=== PATIENT | female | born 1995 | race Two or more races ===

== ENCOUNTER 2016-12-28 18:46 | Emergency (ER) | payer SELFPAY ==
[~2016-12-28] VITALS: Ht 152.4 cm; Wt 59.0 kg
[2016-12-28 19:47] LABS: APPEARANCE,URINE CLEAR; KETONES,URINE NEGATIVE (NEGATIVE); LEUKOCYTE ESTERASE ,URINE 1+ (NEGATIVE); NITRITE,URINE NEGATIVE (NEGATIVE); PH,URINE 7 (4.5-8.0); PROTEIN,URINE NEGATIVE (NEGATIVE); UROBILINOGEN,URINE 1 MG/DL (0.0-1.0)
[2016-12-28 19:54] LABS: BACTERIA,URINE FEW /HPF; RBC,URINE 0-2 /HPF (0 - 2); SQUAMOUS EPITHELIAL CELL,UR FEW /LPF (NONE/OCC); WBC,URINE 0-2 /HPF (0 - 2)
[2016-12-28] MEDS ORDERED: PLAN B ONE-STE1.5 MG PO (20:15)
[2016-12-28 20:38] VITALS: BP 116/69
--- NOTE | 2016-12-28 21:40 | Emergency Room Report ---
History of Present Illness General Chief Complaint: Medication Refill Source: Patient Present Illness HPI The patient is a 21-year-old female presenting for possible . She states that she had unprotected sex yesterday and is not taking any control. She denies any symptoms including N, V, F, chills, abd pain, vaginal bleeding, vaginal DC, dysuria Allergies: Coded Allergies: AMOXICILLIN (Verified Allergy, Unknown, 12/28/16) Patient History Past Medical History: see triage record Pertinent Family History: none Last Menstrual Period: 12/20/16 Reviewed Nursing Documentation: PMH: Agreed, PSxH: Agreed Nursing Documentation-PM Past Medical History: No History, Except For Review of Systems All Other Systems: negative except mentioned in HPI Physical Exam Vital Signs Date Time Temp Pulse Resp B/P (MAP) Pulse Ox O2 Delivery O2 Flow Rate FiO2 12/28/16 18:49 98.1 73 14 116/69 100 Room Air Sp02 EP Interpretation: reviewed, normal General Appearance: no apparent distress, alert, GCS 15, non-toxic Head: normocephalic, atraumatic Eyes: bilateral eye normal inspection, bilateral eye PERRL ENT: hearing grossly normal, normal pharynx, no angioedema, normal voice Gastrointestinal: normal bowel sounds, non tender, soft, non-distended, no guarding, no rebound Musculoskeletal: back normal, gait/station normal, normal range of motion, non- tender Neurologic: alert, oriented x3, responsive, motor strength/tone normal, sensory intact, speech normal Psychiatric: judgement/insight normal, memory normal, mood/affect normal, no suicidal/homicidal ideation Skin: normal color, no rash, warm/dry, well hydrated Medical Decision Making PA Attestation Dr. Stephenson is my supervising physician. Patient management was discussed with my supervising physician Diagnostic Impression: Primary Impression: Possible , not confirmed ER Course The patient is a 21-year-old female presenting for possible Differential diagnoses considered include but not limited to Early , threatened , incomplete , complete , ectopic , hemorrhagic cyst PE: NAD Abd is soft and non tender UA unremarkable. Neg preg She is given prescription for plan B ER precautions given Laboratory Tests Test 12/28/16 19:31 Urine Color Pale yellow Urine Appearance Clear Urine pH 7 (4.5-8.0) Urine Specific [place] 1.010 (1.005-1.035) Urine Protein Negative (NEGATIVE) Urine Glucose (UA) Negative (NEGATIVE) Urine Ketones Negative (NEGATIVE) Urine Occult Blood Negative (NEGATIVE) Urine Nitrite Negative (NEGATIVE) Urine Bilirubin Negative (NEGATIVE) Urine Urobilinogen 1 MG/DL (0.0-1.0) H Urine Leukocyte Esterase 1+ (NEGATIVE) H Urine RBC 0-2 /HPF (0 - 2) Urine WBC 0-2 /HPF (0 - 2) Urine Squamous Epithelial Cells Few /LPF (NONE/OCC) Urine Bacteria Few /HPF (NONE) Urine HCG, Qualitative Negative Lab Results Impression Unremarkable. Neg preg Last Vital Signs Date Time Temp Pulse Resp B/P (MAP) Pulse Ox O2 Delivery O2 Flow Rate FiO2 12/28/16 20:38 98.1 14 116/69 100 Room Air 12/28/16 18:49 73 Status: improved Disposition: HOME, SELF-CARE Condition: Improved Scripts Levonorgestrel (PLAN B ONE-STEP) 1.5 Mg Tablet 1.5 MG PO ONCE, #1 TAB Prov: TEE BLAND 12/28/16 Patient Instructions: Safe Sex Additional Instructions: I discussed my findings with the patient. All questions and concerns have been answered. Treatment and medication compliance have been addressed. I advised the patient that they need to follow up with PMD in 3-5 days. Return to ED if symptoms worsen, new symptoms arise, or if needed for any reason. Patient verbalized understanding of discharge instructions. TEE BLAND Dec 28, 2016 21:40
== END 2016-12-28 20:38 | disposition home or self-care (01) ==
LOC: EMR 19:08
DX: Z32.00 Encounter for pregnancy test, result unknown (principal); Z88.0 Allergy status to penicillin
CPT/HCPCS: 81003; 81025; 99283

== ENCOUNTER 2018-02-03 23:36 | Emergency (ER) | payer BC ==
[~2018-02-03] VITALS: Ht 152.4 cm; Wt 61.7 kg
[~2018-02-03 23:36] MED LIST: BENADRYL ALLERG25 M1 PO; IBUPROFEN600 MG ORAL; NKM; PLAN B ONE-STE1.5 MG PO
[2018-02-04 00:06] VITALS: BP 131/80
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
[2018-02-04 00:30] VITALS: BP 131/80
== END 2018-02-04 00:30 | disposition home or self-care (01) ==
LOC: EMR 23:50
DX: R07.9 Chest pain, unspecified (principal); Z88.0 Allergy status to penicillin
CPT/HCPCS: 93005; 99282

== ENCOUNTER 2018-05-19 15:52 | Emergency (ER) | payer OTHER ==
[~2018-05-19] VITALS: Ht 154.9 cm; Wt 59.0 kg
--- NOTE | 2018-05-19 16:20 | NUR ---
ED Nurse Note: patient walked into Ed from home c/o epigastric pain, sharp, radiates to her back patient reports eating greasy taco yesterday and it started since then. patient denies any fever /vomiting.
[2018-05-19] MEDS ORDERED: Dicyclomine HCl 10mg/5ml oral soln ORAL ONE (16:30)
[2018-05-19] MEDS ORDERED: Lidocaine 2% Visc 15ml soln ORAL ONE (16:30)
[2018-05-19] MEDS ORDERED: Mylanta II UD 30ml ORAL ONE (16:30)
[2018-05-19 16:47] VITALS: BP 119/79
[2018-05-19 16:47] LABS: EOSINOPHILS % (AUTO) 0.8 % (0.0-3.0); HEMATOCRIT 41.8 % (37.0-47.0); HEMOGLOBIN 14.2 G/DL (12.0-16.0); LYMPHOCYTES % (AUTO) 22.7 % (20.0-45.0); MEAN CORPUSCULAR VOLUME 90 FL (80-99); MONOCYTES % (AUTO) 5.9 % (1.0-10.0); NEUTROPHILS % (AUTO) 69.7 % (45.0-75.0); PLATELET COUNT 225 K/UL (150-450); RED BLOOD COUNT 4.64 M/UL (4.20-5.40); RED CELL DISTRIBUTION WIDTH 11.7 % (11.6-14.8); WHITE BLOOD COUNT 12.1 K/UL (4.8-10.8)
[2018-05-19 16:53] LABS: APPEARANCE,URINE CLEAR; BILIRUBIN, URINE NEGATIVE (NEGATIVE); GLUCOSE, URINE (UA) NEGATIVE (NEGATIVE); KETONES,URINE NEGATIVE (NEGATIVE); LEUKOCYTE ESTERASE ,URINE 1+ (NEGATIVE); NITRITE,URINE NEGATIVE (NEGATIVE); PH,URINE 7 (4.5-8.0); PROTEIN,URINE NEGATIVE (NEGATIVE); UROBILINOGEN,URINE NORMAL MG/DL (0.0-1.0)
[2018-05-19 16:54] LABS: COLOR,URINE YELLOW
[2018-05-19 16:58] LABS: ANION GAP 9 mmol/L (5-15); BLOOD UREA NITROGEN 12 mg/dL (7-18); CALCIUM 9.1 MG/DL (8.5-10.1); CARBON DIOXIDE 28 MMOL/L (21-32); CHLORIDE 103 MMOL/L (98-107); CREATININE 0.7 MG/DL (0.55-1.30); POTASSIUM 3.3 MMOL/L (3.5-5.1); SODIUM 139 MMOL/L (136-145)
[2018-05-19 17:02] LABS: ALANINE AMINOTRANSFERASE 24 U/L (12-78); ALBUMIN 4.2 G/DL (3.4-5.0); ALBUMIN/GLOBULIN RATIO 1.2 (1.0-2.7); ALKALINE PHOSPHATASE 84 U/L (46-116); ASPARTATE AMINO TRANSFERASE 14 U/L (15-37); BILIRUBIN,TOTAL 0.4 MG/DL (0.2-1.0)
--- NOTE | 2018-05-19 17:04 | NUR ---
ED Nurse Note: Shea BROWER notified [facility] neg.
--- NOTE | 2018-05-19 17:32 | Emergency Room Report ---
History of Present Illness General Chief Complaint: Abdominal Pain Source: Patient Present Illness HPI 22-year-old female presents to the emergency department complaining of 10 out of 10 in severity burning epigastric and right upper quadrant pain that is intermittent times one week. Patient reports nausea she denies vomiting she does report 3 episodes of loose stools this morning. Patient denies blood in the stool or black tarry stool. Patient does report that she also has a history of gallstones. Patient denies fevers, chills, recent travel or ill contacts with similar symptoms. Patient denies suspicion of , dysuria , hematuria or urinary frequency. Patient states that her abdominal pain radiates across towards the right of her stomach and backwards. Patient states that her symptoms are exacerbated with eating greasy foods and she denies any relieving factors. Allergies: Coded Allergies: AMOXICILLIN (Verified Allergy, Unknown, 12/28/16) Patient History Past Medical History: see triage record Past Surgical History: none Pertinent Family History: none Last Menstrual Period: 04/18/2018 Now: No Reviewed Nursing Documentation: PMH: Agreed; PSxH: Agreed Nursing Documentation-PMH Past Medical History: No Stated History Review of Systems All Other Systems: negative except mentioned in HPI Physical Exam Vital Signs Date Time Temp Pulse Resp B/P (MAP) Pulse Ox O2 Delivery O2 Flow Rate FiO2 05/19/18 16:10 98.2 97 16 119/79 99 Room Air Medical Decision Making PA Attestation Dr. Reyes is my supervising Physician whom patient management has been discussed with. Diagnostic Impression: Primary Impression: Abdominal pain Qualified Codes: R10.13 - Epigastric pain Additional Impressions: Diarrhea Qualified Codes: R19.7 - Diarrhea, unspecified Hx of gallstones ER Course 22-year-old female presents to the emergency department complaining of 10 out of 10 in severity burning epigastric and right upper quadrant pain that is intermittent times one week. Patient reports nausea she denies vomiting she does report 3 episodes of loose stools this morning. Patient denies blood in the stool or black tarry stool. Patient does report that she also has a history of gallstones. Patient denies fevers, chills, recent travel or ill contacts with similar symptoms. Patient denies suspicion of , dysuria , hematuria or urinary frequency. Patient states that her abdominal pain radiates across towards the right of her stomach and backwards. Patient states that her symptoms are exacerbated with eating greasy foods and she denies any relieving factors. Ddx considered but are not limited to Diverticulitis, acute appy, diarrhea,UC, PUD, GE, pancreatitis, gallstone, ovarian torsion, ectopic , PID tubo-ovarian abscess. Vital signs: are WNL, pt. is afebrile H&PE are most consistent with gastritis vs, viral GE, vs. gallstones ORDERS: -CBC, CMP, LIPASE: All WNL- WBC at 12.1 most likely stress reaction due to diarrhea. -UA: Negative -URINE HCG:Negative ED INTERVENTIONS: -PO zofran 4mg. / Zantac, Fluids -Bentyl PO -I do not identify an emergent condition at this time. With current presentation , pt. is stable for close outpatient follow up and conservative treatment. D/ w pt. to return promptly to ED with worsening or new symptoms.- Pt. verbalizes' understanding and agreement with proposed treatment plan. DISCHARGE: At this time pt. is stable for d/c to home. Will provide printed patient care instructions, and any necessary prescriptions. Care plan and follow up instructions have been discussed with the patient prior to discharge. Labs Test 05/19/18 16:30 White Blood Count 12.1 K/UL (4.8-10.8) Red Blood Count 4.64 M/UL (4.20-5.40) Hemoglobin 14.2 G/DL (12.0-16.0) Hematocrit 41.8 % (37.0-47.0) Mean Corpuscular Volume 90 FL (80-99) Mean Corpuscular Hemoglobin 30.6 PG (27.0-31.0) Mean Corpuscular Hemoglobin Concent 33.9 G/DL (32.0-36.0) Red Cell Distribution Width 11.7 % (11.6-14.8) Platelet Count 225 K/UL (150-450) Mean Platelet Volume 9.7 FL (6.5-10.1) Neutrophils (%) (Auto) 69.7 % (45.0-75.0) Lymphocytes (%) (Auto) 22.7 % (20.0-45.0) Monocytes (%) (Auto) 5.9 % (1.0-10.0) Eosinophils (%) (Auto) 0.8 % (0.0-3.0) Basophils (%) (Auto) 1.0 % (0.0-2.0) Urine Color Yellow Urine Appearance Clear Urine pH 7 (4.5-8.0) Urine Specific [place] 1.010 (1.005-1.035) Urine Protein Negative (NEGATIVE) Urine Glucose (UA) Negative (NEGATIVE) Urine Ketones Negative (NEGATIVE) Urine Blood 1+ (NEGATIVE) Urine Nitrite Negative (NEGATIVE) Urine Bilirubin Negative (NEGATIVE) Urine Urobilinogen Normal MG/DL (0.0-1.0) Urine Leukocyte Esterase 1+ (NEGATIVE) Urine RBC 2-4 /HPF (0 - 2) Urine WBC 0-2 /HPF (0 - 2) Urine Squamous Epithelial Cells Few /LPF (NONE/OCC) Urine Bacteria Few /HPF (NONE) Urine HCG, Qualitative Negative (NEGATIVE) Sodium Level 139 MMOL/L (136-145) Potassium Level 3.3 MMOL/L (3.5-5.1) Chloride Level 103 MMOL/L (98-107) Carbon Dioxide Level 28 MMOL/L (21-32) Anion Gap 9 mmol/L (5-15) Blood Urea Nitrogen 12 mg/dL (7-18) Creatinine 0.7 MG/DL (0.55-1.30) Estimat Glomerular Filtration Rate > 60 mL/min (>60) Glucose Level 96 MG/DL (74-106) Calcium Level 9.1 MG/DL (8.5-10.1) Total Bilirubin 0.4 MG/DL (0.2-1.0) Aspartate Amino Transf (AST/SGOT) 14 U/L (15-37) Alanine Aminotransferase (ALT/SGPT) 24 U/L (12-78) Alkaline Phosphatase 84 U/L (46-116) Total Protein 7.7 G/DL (6.4-8.2) Albumin 4.2 G/DL (3.4-5.0) Globulin 3.5 g/dL Albumin/Globulin Ratio 1.2 (1.0-2.7) Lipase 134 U/L (73-393) Last Vital Signs Date Time Temp Pulse Resp B/P (MAP) Pulse Ox O2 Delivery O2 Flow Rate FiO2 05/19/18 16:47 98.2 97 16 119/79 99 Room Air Disposition: HOME, SELF-CARE Condition: Stable Scripts Ondansetron* (ZOFRAN*) 4 Mg Tablet 4 MG ORAL Q6H PRN for Nausea & Vomiting, #9 TAB Prov: Shea Thacker 05/19/18 Lidocaine HCl 2% Viscous (Lidocaine HCl 2% Viscous) 100 Ml Solution 15 ML ORAL QID for 4 Days, #200 ML Prov: Shea Thacker 05/19/18 Ranitidine Hcl* (ZANTAC*) 150 Mg Tablet 150 MG ORAL TWICE A DAY for 7 Days, #14 TAB Prov: Shea Thacker 05/19/18 Dicyclomine Hcl* (DICYCLOMINE HCL*) 10 Mg Capsule 10 MG PO QID for 3 Days, #12 CAP Prov: Shea Thacker 05/19/18 Departure Forms: Return to Work Return to Work Date: May 23, 2018 Work Restrictions: None Other Restrictions: May return Sooner if Symptoms have resolved. Return to Full Activity: May 23, 2018 Patient Instructions: Abdominal Pain, Adult, Cholelithiasis, [id number], Diarrhea, Adult, [id number], Food Choices to Help Relieve Diarrhea, Adult Additional Instructions: Take medications as directed. Follow up with a Primary Care Provider in 3-5 days, even if your symptoms have resolved. --Please review list of primary care clinics, if you do not already have a primary care provider Return sooner to ED if new symptoms occur, or current symptoms become worse. - Please note that this Emergency Department Report was dictated using [employer] therapist technology software, occasionally this can lead to erroneous entry secondary to interpretation by the dictation equipment. Shea Thacker May 19, 2018 17:32
[2018-05-19] MEDS ORDERED: LIDOCAINE VISC100 ML ORAL (17:37)
[2018-05-19] MEDS ORDERED: ZOFRAN4 M3 ORAL (17:37)
[2018-05-19] MEDS ORDERED: DICYCLOMINE HCL10 MG PO (17:37)
[2018-05-19] MEDS ORDERED: ZANTAC150 MG ORAL (17:37)
--- NOTE | 2018-05-19 18:01 | NUR ---
ER DISCHARGE NOTE: Patient is cleared to be discharged per ERMD, pt is aox4, on room air, with stable vital signs. pt was given dc and prescription instructions, pt was able to verbalize understanding, pt id band and iv site removed without complications. pt is able to ambulate with steady gait. pt took all belongings.
== END 2018-05-19 17:50 | disposition home or self-care (01) ==
LOC: EMR 17:15
DX: R10.13 Epigastric pain (principal); R10.11 Right upper quadrant pain; R19.7 Diarrhea, unspecified; Z87.19 Personal history of other diseases of the digestive system; Z88.0 Allergy status to penicillin
CPT/HCPCS: 36415; 80053; 81003; 81025; 83690; 85025; 96374; 99284; J2405

== ENCOUNTER 2018-07-06 19:07 | Emergency (ER) | payer OTHER ==
[~2018-07-06] VITALS: Ht 154.9 cm; Wt 59.0 kg
[~2018-07-06 19:07] MED LIST changes: +DICYCLOMINE HCL10 MG PO; +LIDOCAINE VISC100 ML ORAL; +ZANTAC150 MG ORAL; +ZOFRAN4 M3 ORAL
[2018-07-06 19:27] VITALS: BP 118/81
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
[2018-07-06] MEDS ORDERED: Tetanus/Diptheria/Pertussis IM ONE (20:00)
[2018-07-06 20:33] LABS: BILIRUBIN, URINE NEGATIVE (NEGATIVE); COLOR,URINE PALE YELLOW; GLUCOSE, URINE (UA) NEGATIVE (NEGATIVE); KETONES,URINE 2+ (NEGATIVE); LEUKOCYTE ESTERASE ,URINE 1+ (NEGATIVE); NITRITE,URINE NEGATIVE (NEGATIVE); PH,URINE 7 (4.5-8.0); PROTEIN,URINE NEGATIVE (NEGATIVE); UROBILINOGEN,URINE NORMAL MG/DL (0.0-1.0)
[2018-07-06 20:34] LABS: APPEARANCE,URINE CLEAR
[2018-07-06] MEDS ORDERED: IBUPROFEN600 MG ORAL (21:15)
[2018-07-06 21:18] VITALS: BP 118/81
--- NOTE | 2018-07-06 21:19 | NUR ---
ER DISCHARGE NOTE: Patient is cleared to be discharged per ERMD, pt is aox4, on room air, with stable vital signs. pt was given dc and prescription instructions, pt was able to verbalize understanding, pt id band site removed. pt is able to ambulate with steady gait. pt took all belongings.
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
== END 2018-07-06 21:20 | disposition home or self-care (01) ==
LOC: EMR 19:50
DX: S40.211A Abrasion of right shoulder, initial encounter (principal); R07.89 Other chest pain; V43.52XA Car driver injured in collision with other type car in traffic accident, initial encounter; Y92.410 Unspecified street and highway as the place of occurrence of the external cause; Z88.0 Allergy status to penicillin; F41.9 Anxiety disorder, unspecified; Z23 Encounter for immunization
CPT/HCPCS: 81003; 81025; 90471; 90715; 99283

== ENCOUNTER 2018-07-19 21:37 | Emergency (ER) | payer OTHER ==
[~2018-07-19] VITALS: Ht 154.9 cm; Wt 59.0 kg
--- NOTE | 2018-07-19 22:35 | NUR ---
ED Nurse Note: Patient walk in c/o upper abdominal pain and nausea since today. AO4 NAD VSS
--- NOTE | 2018-07-19 22:40 | Emergency Room Report ---
History of Present Illness General Chief Complaint: Abdominal Pain Source: Patient Present Illness HPI Is a 22-year-old female with a history of gallstone diagnosed about 5 months ago. She had any issue until today. She presents with chief complaint of right upper quadrant pain. Onset was acute. Occur few hours ago. Radiating to her back. Pain is 8 out of 10. No relief with ibuprofen. Nausea but no vomiting. No diarrhea. Denies any other complaint. Similar symptom in the past. Allergies: Coded Allergies: AMOXICILLIN (Verified Allergy, Unknown, 12/28/16) Patient History Past Medical History: see triage record, old chart reviewed Past Surgical History: none Pertinent Family History: none Social History: Denies: smoking Last Menstrual Period: 06/20/2018 Now: No Immunizations: other Reviewed Nursing Documentation: PMH: Agreed; PSxH: Agreed Nursing Documentation-PMH Past Medical History: No Stated History Review of Systems Eye: Denies: eye pain, blurred vision ENT: Denies: ear pain, nose congestion, throat swelling Respiratory: Denies: cough, shortness of breath Cardiovascular: Denies: chest pain, palpitations Gastrointestinal: Reports: abdominal pain, nausea; Denies: diarrhea, vomiting Musculoskeletal: Denies: back pain, joint pain Skin: Denies: rash Neurological: Denies: headache, numbness Endocrine: Denies: increased thirst, increased urine Hematologic/Lymphatic: Denies: easy bruising All Other Systems: negative except mentioned in HPI Physical Exam Vital Signs Date Time Temp Pulse Resp B/P (MAP) Pulse Ox O2 Delivery O2 Flow Rate FiO2 07/19/18 21:58 98.4 81 16 113/76 98 Room Air vitals normal Sp02 EP Interpretation: reviewed, normal General Appearance: well appearing, no apparent distress, alert Head: normocephalic, atraumatic Eyes: bilateral eye PERRL, bilateral eye EOMI ENT: hearing grossly normal, normal pharynx Neck: full range of motion, supple, no meningismus Respiratory: chest non-tender, lungs clear, normal breath sounds Cardiovascular #1: regular rate, rhythm, no murmur Gastrointestinal: normal bowel sounds, no mass, no organomegaly, no bruit, non- distended, tenderness - right upper quadrant Musculoskeletal: back normal, gait/station normal, normal range of motion Psychiatric: mood/affect normal Skin: warm/dry Medical Decision Making Diagnostic Impression: Primary Impression: Biliary colic Additional Impressions: Abdominal pain Qualified Codes: R10.11 - Right upper quadrant pain UTI (urinary tract infection) Qualified Codes: N30.00 - Acute cystitis without hematuria ER Course Patient presents with abdominal pain. Now she has diarrhea. This may be a gastroenteritis rather than biliary colic. Labs unremarkable. Possible urinary tract infection. Pain resolved now. We'll discharge home. Last Vital Signs Date Time Temp Pulse Resp B/P (MAP) Pulse Ox O2 Delivery O2 Flow Rate FiO2 07/19/18 21:58 98.4 81 16 113/76 98 Room Air Status: improved Disposition: HOME, SELF-CARE Condition: Stable Scripts Nitrofurantoin Monohyd/M-Cryst (Nitrofurantoin [place]-Mcr 100 mg) 100 Mg Capsule 100 MG ORAL Q12H, #14 CAP Prov: Ellis Lezama MD 07/20/18 Hydrocodone/Acetaminophen 5-325* (HYDROCODONE/ACETAMINOPHEN 5-325*) 1 Each Tablet 1 TAB ORAL Q6H PRN for For Pain, #15 TAB 0 Refills Prov: Ellis Lezama MD 07/20/18 Patient Instructions: Abdominal Pain, Adult Additional Instructions: Follow-up with your doctor in 7 days. Return if worse. Ellis Lezama MD Jul 19, 2018 22:40
[2018-07-19] MEDS ORDERED: Morphine Sulfate 4mg/ml Inj (IV USE ONLY) IVP ONE (22:45)
--- NOTE | 2018-07-19 22:45 | NUR ---
ED Nurse Note: IV ACCESS ESTABLISHED. BLOOD AND URINE COLLECTED; SENT DOWN TO LAB
[2018-07-19 23:15] LABS: ANION GAP 10 mmol/L (5-15); BLOOD UREA NITROGEN 15 mg/dL (7-18); CALCIUM 9.4 MG/DL (8.5-10.1); CARBON DIOXIDE 28 MMOL/L (21-32); CHLORIDE 101 MMOL/L (98-107); CREATININE 0.8 MG/DL (0.55-1.30); POTASSIUM 3.3 MMOL/L (3.5-5.1); SODIUM 139 MMOL/L (136-145)
[2018-07-19 23:17] VITALS: BP 113/76
[2018-07-19 23:20] LABS: ALANINE AMINOTRANSFERASE 31 U/L (12-78); ALBUMIN 4.6 G/DL (3.4-5.0); ALBUMIN/GLOBULIN RATIO 1.3 (1.0-2.7); ALKALINE PHOSPHATASE 80 U/L (46-116); ASPARTATE AMINO TRANSFERASE 19 U/L (15-37); BILIRUBIN,TOTAL 0.4 MG/DL (0.2-1.0)
[2018-07-19 23:22] LABS: BASOPHILS % (AUTO) 1.1 % (0.0-2.0); EOSINOPHILS % (AUTO) 1.1 % (0.0-3.0); HEMATOCRIT 39.6 % (37.0-47.0); LYMPHOCYTES % (AUTO) 21.9 % (20.0-45.0); MEAN CORPUSCULAR VOLUME 89 FL (80-99); MONOCYTES % (AUTO) 5.5 % (1.0-10.0); NEUTROPHILS % (AUTO) 70.4 % (45.0-75.0); PLATELET COUNT 209 K/UL (150-450); RED BLOOD COUNT 4.46 M/UL (4.20-5.40); RED CELL DISTRIBUTION WIDTH 11.6 % (11.6-14.8); WHITE BLOOD COUNT 12.5 K/UL (4.8-10.8)
[2018-07-19 23:27] LABS: APPEARANCE,URINE CLEAR; BILIRUBIN, URINE NEGATIVE (NEGATIVE); GLUCOSE, URINE (UA) NEGATIVE (NEGATIVE); KETONES,URINE NEGATIVE (NEGATIVE); LEUKOCYTE ESTERASE ,URINE 2+ (NEGATIVE); NITRITE,URINE NEGATIVE (NEGATIVE); PH,URINE 8 (4.5-8.0); PROTEIN,URINE NEGATIVE (NEGATIVE); UROBILINOGEN,URINE NORMAL MG/DL (0.0-1.0)
[2018-07-19 23:40] LABS: COLOR,URINE YELLOW
[2018-07-20] MEDS ORDERED: cefTRIAXone 1 GM in NS 55 ML IVPB ONE ×2
[2018-07-20] MEDS ORDERED: MACROBID100 MG ORAL (00:12)
[2018-07-20] MEDS ORDERED: HYDROCODON-ACE1 EA15 ORAL (00:12)
[2018-07-20 00:15] VITALS: BP 113/76
== END 2018-07-20 00:15 | disposition home or self-care (01) ==
LOC: EMR 22:08
DX: K80.50 Calculus of bile duct without cholangitis or cholecystitis without obstruction (principal); R10.11 Right upper quadrant pain; N30.00 Acute cystitis without hematuria; Z88.0 Allergy status to penicillin
CPT/HCPCS: 36415; 80053; 81003; 81025; 83690; 85025; 87086; 96361; 96365; 96375; 99284; J0696; J2270; J2405

== ENCOUNTER 2019-05-15 12:38 | Emergency (ER) | payer OTHER, BC ==
[~2019-05-15] VITALS: Ht 154.9 cm; Wt 55.8 kg
[~2019-05-15 12:38] MED LIST changes: +HYDROCODON-ACE1 EA15 ORAL; +MACROBID100 MG ORAL
[2019-05-15 13:02] VITALS: BP 132/86
--- NOTE | 2019-05-15 13:15 | Emergency Room Report ---
History of Present Illness General Chief Complaint: Abdominal Pain Source: Patient Present Illness HPI Patient presents with complaints of lower abdominal cramping sensation with diarrhea started yesterday and she had 2 more episodes today Denies any fevers or chills denies any chest pain she does have what she describes as acid reflux in the mid epigastric area Patient also reports that she had a ' gallstone attack' yesterday which has since improved Last menstrual cycle was last month Denies any recent travel denies any rash denies any blood in the stool Allergies: Coded Allergies: AMOXICILLIN (Verified Allergy, Unknown, 12/28/16) Patient History Past Medical History: see triage record Last Menstrual Period: 04/13/2019 Now: No Reviewed Nursing Documentation: PMH: Agreed; PSxH: Agreed Nursing Documentation-PMH History Of Psychiatric Problem: Yes - anxiety Review of Systems All Other Systems: negative except mentioned in HPI Physical Exam Vital Signs Date Time Temp Pulse Resp B/P (MAP) Pulse Ox O2 Delivery O2 Flow Rate FiO2 05/15/19 13:02 98.2 95 20 132/86 (101) 99 Room Air Sp02 EP Interpretation: reviewed, normal General Appearance: well appearing, no apparent distress Head: normocephalic, atraumatic Eyes: bilateral eye PERRL, bilateral eye EOMI ENT: hearing grossly normal, normal pharynx, TMs + canals normal, uvula midline Neck: full range of motion, supple, no meningismus, no bony tend Respiratory: lungs clear, normal breath sounds, no rhonchi, no respiratory distress, no retraction, no accessory muscle use Cardiovascular #1: normal peripheral pulses, regular rate, rhythm, no edema, no gallop, no JVD, no murmur Gastrointestinal: normal bowel sounds, non tender - However subjectively points to the bilateral lower abdominal area for cramping sensation, soft, no mass, no organomegaly, non-distended, no guarding, no hernia, no pulsatile mass , no rebound Genitourinary: no CVA tenderness Musculoskeletal: normal inspection Neurologic: motor strength/tone normal, auto body customizer III-XII nml as tested, oriented x3 , sensory intact, responsive Psychiatric: mood/affect normal Skin: no rash Lymphatic: normal inspection, no adenopathy Medical Decision Making Diagnostic Impression: Primary Impression: Abdominal pain Additional Impression: Diarrhea ER Course With the patient's history and examination, multiple differentials considered, including but not limited to , ectopic , ovarian torsion, gastritis, cholecystitis, pancreatitis, appendicitis Suspicion for appendicitis is low given the description of pain and the clinical exam Patient did have baseline blood work initiated along with urine sample Patient's blood work is at baseline levels LFTs are normal test was negative Patient symptoms appear to be consistent with likely viral pathology with diarrhea patient will have initial conservative outpatient trial and return with any changes or concerns Labs Test 05/15/19 13:25 White Blood Count 11.2 K/UL (4.8-10.8) Red Blood Count 4.63 M/UL (4.20-5.40) Hemoglobin 15.0 G/DL (12.0-16.0) Hematocrit 42.0 % (37.0-47.0) Mean Corpuscular Volume 91 FL (80-99) Mean Corpuscular Hemoglobin 32.3 PG (27.0-31.0) Mean Corpuscular Hemoglobin Concent 35.6 G/DL (32.0-36.0) Red Cell Distribution Width 11.6 % (11.6-14.8) Platelet Count 185 K/UL (150-450) Mean Platelet Volume 10.8 FL (6.5-10.1) Neutrophils (%) (Auto) 83.1 % (45.0-75.0) Lymphocytes (%) (Auto) 11.7 % (20.0-45.0) Monocytes (%) (Auto) 3.8 % (1.0-10.0) Eosinophils (%) (Auto) 0.6 % (0.0-3.0) Basophils (%) (Auto) 0.9 % (0.0-2.0) Urine Color Pale yellow Urine Appearance Clear Urine pH 6.5 (4.5-8.0) Urine Specific [place] 1.005 (1.005-1.035) Urine Protein Negative (NEGATIVE) Urine Glucose (UA) Negative (NEGATIVE) Urine Ketones Negative (NEGATIVE) Urine Blood 3+ (NEGATIVE) Urine Nitrite Negative (NEGATIVE) Urine Bilirubin Negative (NEGATIVE) Urine Urobilinogen Normal MG/DL (0.0-1.0) Urine Leukocyte Esterase Negative (NEGATIVE) Urine RBC 2-4 /HPF (0 - 2) Urine WBC 0 /HPF (0 - 2) Urine Squamous Epithelial Cells Occasional /LPF Urine Bacteria Occasional /HPF (NONE) Urine HCG, Qualitative Negative (NEGATIVE) Sodium Level 141 MMOL/L (136-145) Potassium Level 3.6 MMOL/L (3.5-5.1) Chloride Level 105 MMOL/L (98-107) Carbon Dioxide Level 26 MMOL/L (21-32) Anion Gap 10 mmol/L (5-15) Blood Urea Nitrogen 9 mg/dL (7-18) Creatinine 0.7 MG/DL (0.55-1.30) Estimat Glomerular Filtration Rate > 60 mL/min (>60) Glucose Level 115 MG/DL (74-106) Calcium Level 9.3 MG/DL (8.5-10.1) Total Bilirubin 0.4 MG/DL (0.2-1.0) Aspartate Amino Transf (AST/SGOT) 11 U/L (15-37) Alanine Aminotransferase (ALT/SGPT) 18 U/L (12-78) Alkaline Phosphatase 72 U/L (46-116) Total Protein 7.7 G/DL (6.4-8.2) Albumin 4.2 G/DL (3.4-5.0) Globulin 3.5 g/dL Albumin/Globulin Ratio 1.2 (1.0-2.7) Lipase 104 U/L (73-393) Last Vital Signs Date Time Temp Pulse Resp B/P (MAP) Pulse Ox O2 Delivery O2 Flow Rate FiO2 05/15/19 13:02 98.2 95 20 132/86 (101) 99 Room Air Status: improved Disposition: HOME, SELF-CARE Condition: Improved Scripts Mag Hydrox/Al Hydrox/Simeth (Maalox Advanced Suspension) 355 Ml Oral.susp 10 ML PO DAILY for 7 Days, ML Prov: Zina Villasenor DO 05/15/19 Acetaminophen (Tylenol) 325 Mg Tablet 650 MG ORAL Q8HR PRN for Prn Pain/Headache/Temp > 101, #15 TAB 0 Refills Prov: Zina Villasenor DO 05/15/19 Dicyclomine Hcl* (DICYCLOMINE HCL*) 10 Mg Capsule 10 MG ORAL TID, #12 CAP Prov: Zina Villasenor DO 05/15/19 Additional Instructions: Patient is provided with the discharge instructions notified to follow up with primary doctor in the next 2-3 days otherwise return to the er with any worsening symptoms. Please note that this report is being documented using [employer] technology. This can lead to erroneous entry secondary to incorrect interpretation by the dictating instrument. Zina Villasenor DO May 15, 2019 13:15
[2019-05-15 13:41] LABS: BASOPHILS % (AUTO) 0.9 % (0.0-2.0); EOSINOPHILS % (AUTO) 0.6 % (0.0-3.0); LYMPHOCYTES % (AUTO) 11.7 % (20.0-45.0); MEAN CORPUSCULAR VOLUME 91 FL (80-99); MONOCYTES % (AUTO) 3.8 % (1.0-10.0); NEUTROPHILS % (AUTO) 83.1 % (45.0-75.0); PLATELET COUNT 185 K/UL (150-450); RED BLOOD COUNT 4.63 M/UL (4.20-5.40); RED CELL DISTRIBUTION WIDTH 11.6 % (11.6-14.8); WHITE BLOOD COUNT 11.2 K/UL (4.8-10.8)
[2019-05-15 13:47] LABS: ANION GAP 10 mmol/L (5-15); BLOOD UREA NITROGEN 9 mg/dL (7-18); CALCIUM 9.3 MG/DL (8.5-10.1); CARBON DIOXIDE 26 MMOL/L (21-32); CHLORIDE 105 MMOL/L (98-107); CREATININE 0.7 MG/DL (0.55-1.30); POTASSIUM 3.6 MMOL/L (3.5-5.1); SODIUM 141 MMOL/L (136-145)
[2019-05-15 13:52] LABS: ALANINE AMINOTRANSFERASE 18 U/L (12-78); ALBUMIN 4.2 G/DL (3.4-5.0); ALBUMIN/GLOBULIN RATIO 1.2 (1.0-2.7); ALKALINE PHOSPHATASE 72 U/L (46-116); ASPARTATE AMINO TRANSFERASE 11 U/L (15-37); BILIRUBIN,TOTAL 0.4 MG/DL (0.2-1.0)
[2019-05-15 13:56] LABS: APPEARANCE,URINE CLEAR; BILIRUBIN, URINE NEGATIVE (NEGATIVE); COLOR,URINE PALE YELLOW; GLUCOSE, URINE (UA) NEGATIVE (NEGATIVE); KETONES,URINE NEGATIVE (NEGATIVE); LEUKOCYTE ESTERASE ,URINE NEGATIVE (NEGATIVE); NITRITE,URINE NEGATIVE (NEGATIVE); PH,URINE 6.5 (4.5-8.0); PROTEIN,URINE NEGATIVE (NEGATIVE); UROBILINOGEN,URINE NORMAL MG/DL (0.0-1.0)
[2019-05-15] MEDS ORDERED: TYLENOL325 MG ORAL (14:06)
[2019-05-15] MEDS ORDERED: MAALOX ADVANCE770 ML PO (14:06)
[2019-05-15] MEDS ORDERED: DICYCLOMINE HCL10 MG ORAL (14:06)
--- NOTE | 2019-05-15 14:06 | NUR ---
ED Nurse Note: Pt. aaox4. ambulatory coming from home. pt. walked into er stated that she ate a subway sandwich last night and now has nausea and 5 epsiodes of diarrhea. denies vomiting. vss. no a/a of acute resp distress noted
[2019-05-15 14:16] VITALS: BP 132/86
== END 2019-05-15 14:16 | disposition home or self-care (01) ==
LOC: EMR 14:13
DX: R10.9 Unspecified abdominal pain (principal); R19.7 Diarrhea, unspecified; F41.9 Anxiety disorder, unspecified; Z88.8 Allergy status to other drugs, medicaments and biological substances
CPT/HCPCS: 36415; 80053; 81003; 81025; 83690; 85025; 99283

== ENCOUNTER 2019-07-24 00:40 | Emergency (ER) | payer BC, OTHER ==
[~2019-07-24] VITALS: Ht 154.9 cm; Wt 55.8 kg
[~2019-07-24 00:40] MED LIST changes: +DICYCLOMINE HCL10 MG ORAL; +MAALOX ADVANCE770 ML PO; +TYLENOL325 MG ORAL
[2019-07-24 00:52] VITALS: BP 109/63
--- NOTE | 2019-07-24 00:52 | NUR ---
ED Nurse Note: Pt ambulated into ed from home CO right upper abdominal pain with n/v. pt denies diarrhea or injury to area. Pt states that she took tylenol and gabapentin at approximately 2000 for abdominal pain and states that the medication "made her feel funny or high." Pt aao x 4 ambulatory, VSS no ss of distress noted. ERMD at bedside
--- NOTE | 2019-07-24 00:56 | Emergency Room Report ---
History of Present Illness General Chief Complaint: Abdominal Pain Source: Patient, Medical Record Present Illness HPI This is a 23-year-old female with history of gallstone. She get biliary colic every 2 weeks or so. She presents with chief complaint of right upper quadrant pain. Onset for the last 4 to 5 hours now. Pain is localized to the right upper quadrant. Pain is sharp. Pain is 8 out of 10. Rating to her back. Worse with palpation. Worse with eating. [place] nauseous but no vomiting. No diarrhea. Denies any fever or chills. She took ibuprofen and a gabapentin from her dad. Now she says she felt confused after taking the gabapentin. Never took it before. It was not prescribed to her. She also has some increased frequency in urination. No discharge. No dysuria. Allergies: Coded Allergies: AMOXICILLIN (Verified Allergy, Unknown, 12/28/16) COVID-19 Screening Contact w/high risk pt: No Recent Travel to affected area: No Experienced COVID-19 symptoms?: No Patient History Past Medical History: see triage record, old chart reviewed Past Surgical History: none Pertinent Family History: none Social History: Denies: smoking Last Menstrual Period: 06/22/2019 Now: No Immunizations: other Reviewed Nursing Documentation: PMH: Agreed; PSxH: Agreed Nursing Documentation-PMH Past Medical History: No History, Except For Review of Systems Eye: Denies: eye pain, blurred vision ENT: Denies: ear pain, nose congestion, throat swelling Respiratory: Denies: cough, shortness of breath Cardiovascular: Denies: chest pain, palpitations Gastrointestinal: Reports: abdominal pain, nausea; Denies: diarrhea, vomiting Musculoskeletal: Denies: back pain, joint pain Skin: Denies: rash Neurological: Denies: headache, numbness Endocrine: Denies: increased thirst, increased urine Hematologic/Lymphatic: Denies: easy bruising All Other Systems: negative except mentioned in HPI Physical Exam Vital Signs Date Time Temp Pulse Resp B/P (MAP) Pulse Ox O2 Delivery O2 Flow Rate FiO2 07/24/19 00:42 98.1 100 16 132/69 (90) 100 Room Air Vitals normal Sp02 EP Interpretation: reviewed, normal General Appearance: well appearing, no apparent distress, alert Head: normocephalic, atraumatic Eyes: bilateral eye PERRL, bilateral eye EOMI ENT: hearing grossly normal, normal pharynx Neck: full range of motion, supple, no meningismus Respiratory: chest non-tender, lungs clear, normal breath sounds Cardiovascular #1: regular rate, rhythm, no murmur Gastrointestinal: normal bowel sounds, no mass, no organomegaly, no bruit, non- distended, tenderness - Right upper quadrant tenderness Musculoskeletal: back normal, normal range of motion, gait/station normal Psychiatric: mood/affect normal Medical Decision Making Diagnostic Impression: Primary Impression: Abdominal pain Qualified Codes: R10.11 - Right upper quadrant pain Additional Impression: Biliary colic ER Course Patient presents with right upper quadrant pain that is consistent with biliary colic. She has known diagnosis with ultrasound 2 years ago. Pain resolved after Toradol and Zofran. No evidence any obstruction. No evidence of cholecystitis. Will discharge home. Last Vital Signs Date Time Temp Pulse Resp B/P (MAP) Pulse Ox O2 Delivery O2 Flow Rate FiO2 07/24/19 00:42 98.1 100 16 132/69 (90) 100 Room Air Status: improved Disposition: HOME, SELF-CARE Condition: Stable Scripts Ibuprofen* (MOTRIN*) 600 Mg Tablet 600 MG ORAL Q6H PRN for For Pain, #30 TAB 0 Refills Prov: Ellis Lezama MD 07/24/19 Hydrocodone/Acetaminophen 5-325* (HYDROCODONE/ACETAMINOPHEN 5-325*) 1 Each Tablet 1 TAB ORAL Q6H PRN for For Pain, #15 TAB 0 Refills Prov: Ellis Lezama MD 07/24/19 Additional Instructions: Decreased fatty intake. Follow-up with your doctor in a week. If continue with pain, you may need referral to see a surgeon for gallbladder surgery. Return if worse. Ellis Lezama MD Jul 24, 2019 00:56
[2019-07-24] MEDS ORDERED: Ketorolac 30mg Inj IV ONE (01:00)
--- NOTE | 2019-07-24 01:05 | NUR ---
ED Nurse Note: Pt ambulated to restroom to provide UA sample. Sample obtained and sent to lab
--- NOTE | 2019-07-24 01:06 | NUR ---
ED Nurse Note: Iv line initiated, blood drawn and sent to lab. All medications administered, pt tolerated well no ss of distress noted. NO adverse reactions noted. Pt resting in bed, will continue to monitor
--- NOTE | 2019-07-24 01:30 | NUR ---
ED Nurse Note: pt states that pain has decreased from 7/10 to 5/10. No adverse reactions noted. IV fluids running. Will continue to monitor
[2019-07-24 01:33] LABS: APPEARANCE,URINE CLEAR; BILIRUBIN, URINE NEGATIVE (NEGATIVE); COLOR,URINE PALE YELLOW; GLUCOSE, URINE (UA) NEGATIVE (NEGATIVE); KETONES,URINE NEGATIVE (NEGATIVE); NITRITE,URINE NEGATIVE (NEGATIVE); PH,URINE 6 (4.5-8.0); PROTEIN,URINE NEGATIVE (NEGATIVE); UROBILINOGEN,URINE NORMAL MG/DL (0.0-1.0)
[2019-07-24 01:41] LABS: ANION GAP 11 mmol/L (5-15); BLOOD UREA NITROGEN 12 mg/dL (7-18); CALCIUM 9.4 MG/DL (8.5-10.1); CARBON DIOXIDE 26 MMOL/L (21-32); CHLORIDE 102 MMOL/L (98-107); CREATININE 0.8 MG/DL (0.55-1.30); POTASSIUM 3.1 MMOL/L (3.5-5.1); SODIUM 139 MMOL/L (136-145)
[2019-07-24 01:45] LABS: ALANINE AMINOTRANSFERASE 14 U/L (12-78); ALBUMIN 4.6 G/DL (3.4-5.0); ALBUMIN/GLOBULIN RATIO 1.4 (1.0-2.7); ALKALINE PHOSPHATASE 85 U/L (46-116); ASPARTATE AMINO TRANSFERASE 11 U/L (15-37); BILIRUBIN,TOTAL 0.7 MG/DL (0.2-1.0)
[2019-07-24 01:46] LABS: LEUKOCYTE ESTERASE ,URINE 1+ (NEGATIVE)
[2019-07-24 01:47] LABS: BASOPHILS % (AUTO) 1.4 % (0.0-2.0); EOSINOPHILS % (AUTO) 1.7 % (0.0-3.0); HEMATOCRIT 37.5 % (37.0-47.0); LYMPHOCYTES % (AUTO) 32.6 % (20.0-45.0); MEAN CORPUSCULAR VOLUME 87 FL (80-99); MONOCYTES % (AUTO) 5.6 % (1.0-10.0); NEUTROPHILS % (AUTO) 58.7 % (45.0-75.0); PLATELET COUNT 194 K/UL (150-450); RED BLOOD COUNT 4.32 M/UL (4.20-5.40); RED CELL DISTRIBUTION WIDTH 10.7 % (11.6-14.8)
[2019-07-24] MEDS ORDERED: HYDROCODON-ACE1 EA15 ORAL (01:57)
[2019-07-24] MEDS ORDERED: IBUPROFEN600 M1 ORAL (01:57)
--- NOTE | 2019-07-24 02:00 | NUR ---
ED Nurse Note: ERMD at bedside
[2019-07-24 02:06] VITALS: BP 113/72
--- NOTE | 2019-07-24 02:06 | NUR ---
ER DISCHARGE NOTE: Patient is cleared to be discharged home per ERMD, pt is aox4, 99% on room air, with stable vital signs. pt was given dc and prescription instructions, pt was able to verbalize understanding, pt id band and iv site removed without complications. pt is able to ambulate with steady gait. pt took all belongings.
== END 2019-07-24 02:06 | disposition home or self-care (01) ==
LOC: EMR 01:06
DX: K80.50 Calculus of bile duct without cholangitis or cholecystitis without obstruction (principal); R10.11 Right upper quadrant pain; Z88.0 Allergy status to penicillin
CPT/HCPCS: 36415; 80053; 81003; 81025; 83690; 85025; 96361; 96374; 96375; 99284; J1885; J2405; J7030

== ENCOUNTER 2019-08-04 13:48 | Emergency (ER) | payer BC, OTHER ==
[~2019-08-04] VITALS: Ht 154.9 cm; Wt 55.8 kg
[~2019-08-04 13:48] MED LIST changes: +IBUPROFEN600 M1 ORAL
--- NOTE | 2019-08-04 14:30 | NUR ---
ED Nurse Note:pt. came from home with c/o nausea abdominal pain and diahrrea, pt. is A/Ox4 ambulatory with steady gait, blood and urine sent to labs, given IV meds and fluids
[2019-08-04 14:56] LABS: BASOPHILS % (AUTO) 1.2 % (0.0-2.0); EOSINOPHILS % (AUTO) 0.8 % (0.0-3.0); HEMATOCRIT 41.3 % (37.0-47.0); HEMOGLOBIN 14.8 G/DL (12.0-16.0); LYMPHOCYTES % (AUTO) 25.4 % (20.0-45.0); MEAN CORPUSCULAR VOLUME 88 FL (80-99); MONOCYTES % (AUTO) 4.1 % (1.0-10.0); NEUTROPHILS % (AUTO) 68.5 % (45.0-75.0); PLATELET COUNT 236 K/UL (150-450); RED BLOOD COUNT 4.67 M/UL (4.20-5.40); RED CELL DISTRIBUTION WIDTH 10.7 % (11.6-14.8); WHITE BLOOD COUNT 7.8 K/UL (4.8-10.8)
[2019-08-04 15:01] VITALS: BP 102/63
--- NOTE | 2019-08-04 15:01 | NUR ---
ED Nurse Note: Report received from MONISHA Arciniega
[2019-08-04 15:07] LABS: ANION GAP 9 mmol/L (5-15); BLOOD UREA NITROGEN 7 mg/dL (7-18); CALCIUM 9.3 MG/DL (8.5-10.1); CARBON DIOXIDE 27 MMOL/L (21-32); CHLORIDE 104 MMOL/L (98-107); CREATININE 0.8 MG/DL (0.55-1.30); POTASSIUM 3.8 MMOL/L (3.5-5.1); SODIUM 140 MMOL/L (136-145)
[2019-08-04 15:11] LABS: ALANINE AMINOTRANSFERASE 17 U/L (12-78); ALBUMIN 4.4 G/DL (3.4-5.0); ALBUMIN/GLOBULIN RATIO 1.3 (1.0-2.7); ALKALINE PHOSPHATASE 74 U/L (46-116); ASPARTATE AMINO TRANSFERASE 13 U/L (15-37); BILIRUBIN,TOTAL 0.6 MG/DL (0.2-1.0)
[2019-08-04 15:20] LABS: APPEARANCE,URINE CLEAR; BILIRUBIN, URINE NEGATIVE (NEGATIVE); COLOR,URINE PALE YELLOW; GLUCOSE, URINE (UA) NEGATIVE (NEGATIVE); KETONES,URINE NEGATIVE (NEGATIVE); LEUKOCYTE ESTERASE ,URINE 2+ (NEGATIVE); NITRITE,URINE NEGATIVE (NEGATIVE); PH,URINE 7 (4.5-8.0); PROTEIN,URINE NEGATIVE (NEGATIVE); UROBILINOGEN,URINE NORMAL MG/DL (0.0-1.0)
--- NOTE | 2019-08-04 15:48 | Emergency Room Report ---
History of Present Illness General Chief Complaint: Nausea Source: Patient Present Illness HPI 23-year-old female with history of gallstones and biliary colic abdominal pain here complaining of 3 days of few bouts of nonbloody diarrhea and minor diffuse abdominal pain with few bouts of nonbloody emesis. Denies any fever and chills , cough and congestion, shortness of breath. 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 Patient reports that she got tested for COVID-19 about a month ago and was negative. Denies at this time. Reports that the symptoms are not similar to her usual colicky pain Allergies: Coded Allergies: AMOXICILLIN (Verified Allergy, Unknown, 12/28/16) COVID-19 Screening Contact w/high risk pt: No Recent Travel to affected area: No Experienced COVID-19 symptoms?: No Patient History Past Medical History: see triage record Past Surgical History: none Pertinent Family History: none Now: No Immunizations: UTD Reviewed Nursing Documentation: PMH: Agreed; PSxH: Agreed Review of Systems All Other Systems: negative except mentioned in HPI Physical Exam Vital Signs Date Time Temp Pulse Resp B/P (MAP) Pulse Ox O2 Delivery O2 Flow Rate FiO2 08/04/19 14:01 99.1 96 19 118/76 (90) 96 Room Air Sp02 EP Interpretation: reviewed, normal General Appearance: no apparent distress, alert, GCS 15, non-toxic Head: normocephalic, atraumatic Eyes: bilateral eye normal inspection, bilateral eye PERRL ENT: hearing grossly normal, normal pharynx, no angioedema, normal voice Respiratory: chest non-tender, lungs clear, normal breath sounds, no rhonchi, no retraction, no wheezing, speaking full sentences Cardiovascular #1: regular rate, rhythm, no edema, no murmur Gastrointestinal: soft Rectal: deferred Genitourinary: no CVA tenderness Musculoskeletal: back normal, normal range of motion, gait/station normal, non- tender Neurologic: alert, motor strength/tone normal, oriented x3, sensory intact, responsive, speech normal Psychiatric: judgement/insight normal, memory normal, mood/affect normal, no suicidal/homicidal ideation Skin: no rash Lymphatic: no adenopathy Medical Decision Making PA Attestation All diagnoses and treatment plans were reviewed and discussed with my supervising physician Dr. Cheng Diagnostic Impression: Primary Impression: Suspected 2019 novel coronavirus infection Additional Impression: Abdominal pain ER Course 23-year-old female with history of gallstones and biliary colic abdominal pain here complaining of 3 days of few bouts of nonbloody diarrhea and minor diffuse abdominal pain with few bouts of nonbloody emesis. Denies any fever and chills , cough and congestion, shortness of breath. 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 Patient reports that she got tested for COVID-19 about a month ago and was negative. Denies at this time. Reports that the symptoms are not similar to her usual colicky pain Ddx considered but are not limited to: appendicitis, cholecystis, gastritis, gastroenteritis, UTI, pylonephritis, SBO, diverticulitis, influenza with GI manifestation, ND, complication with Vital signs: are WNL, pt. is afebrile H&PE are most consistent with: Suspected COVID-19, abdominal pain ORDERS: Abdominal pain order set, at this time no imaging is needed patient is nontender and does not elicit a lot of abdominal pain however mostly Diarrhea, nausea vomiting. Zofran, dicyclomine, Tylenol ED INTERVENTIONS: NS bolus, Zofran, Pepcid DISCHARGE: At this time pt. is stable for d/c to home. Will provide printed patient care instructions, and any necessary prescriptions. Care plan and follow up instructions have been discussed with the patient prior to discharge. Patient take medication as directed, follow-up primary doctor regarding biliary colic I also gave information to cross the street hemoglobin testing as patient is high risk. Chest X-Ray Diagnostic Results Chest X-Ray Diagnostic Results : Chest X-Ray Ordered: Yes # of Views/Limited/Complete: 1 View Indication: Other EP Interpretation: Yes PA Xray: Interpretation reviewed, by supervising MD, and agrees with findings. Interpretation: no consolidation, no effusion, no pneumothorax Impression: No acute disease Electronically Signed by: Caitlin Dee PA-C Last Vital Signs Date Time Temp Pulse Resp B/P (MAP) Pulse Ox O2 Delivery O2 Flow Rate FiO2 08/04/19 15:01 99.1 78 19 102/63 100 Room Air Disposition: HOME, SELF-CARE Condition: Stable Scripts Acetaminophen* (TYLENOL EXTRA STRENGTH*) 500 Mg Tablet 500 MG ORAL Q8H PRN for Prn Headache/Temp > 101, #30 TAB 0 Refills Prov: Caitlin Maradiaga 08/04/19 Dicyclomine Hcl* (DICYCLOMINE HCL*) 10 Mg Capsule 10 MG ORAL QID, #20 CAP Prov: Caitlin Maradiaga 08/04/19 Ondansetron (Zofran) 4 Mg Tablet 4 MG ORAL Q6H PRN for Nausea & Vomiting, #14 TAB Prov: Caitlin Maradiaga 08/04/19 Referrals: Abner Phan MD (PCP) Patient Instructions: Nausea and Vomiting, Adult Additional Instructions: Take medication as directed, stay at home, increase oral hydration, if worsening symptom return to emergency room. Take medication as directed, follow -up with your primary doctor, you need to stay home for self quarantine due to Covid 19 precautions for 14 days Caitlin Maradiaga August 04, 2019 15:48
[2019-08-04] MEDS ORDERED: DICYCLOMINE HCL10 MG ORAL (15:49)
[2019-08-04] MEDS ORDERED: TYLENOL EXTRA500 MG ORAL (15:49)
[2019-08-04] MEDS ORDERED: ZOFRAN4 M1 ORAL (15:49)
[2019-08-04 16:05] VITALS: BP 122/67
--- NOTE | 2019-08-04 17:41 | Diagnostic Imaging Report ---
Indication: Chest Technique: One view of the chest Comparison: none Findings: Lungs and pleural spaces are clear. Heart size is normal. Impression: No acute process
== END 2019-08-04 16:00 | disposition home or self-care (01) ==
LOC: EMR 14:23
DX: R10.9 Unspecified abdominal pain (principal); R19.7 Diarrhea, unspecified; Z88.0 Allergy status to penicillin
CPT/HCPCS: 36415; 71045; 80053; 80307; 81003; 81025; 83690; 85025; 85610; 85730; 96361; 96374; 96375; 99284; J2405; J7030; S0028

== ENCOUNTER 2020-01-17 09:06 | Emergency (ER) | payer BC ==
[~2020-01-17] VITALS: Ht 154.9 cm; Wt 56.2 kg
[~2020-01-17 09:06] MED LIST changes: +TYLENOL EXTRA500 MG ORAL; +ZOFRAN4 M1 ORAL
--- NOTE | 2020-01-17 09:28 | Emergency Room Report ---
History of Present Illness General Chief Complaint: Female Urogenital Problems Source: Patient Present Illness HPI Disclaimer: Please note that this report is being documented using DRAGON technology. This can lead to erroneous entry secondary to incorrect interpretation by the dictating instrument. HPI: 24-year-old otherwise healthy female presents for evaluation of fatigue, nausea and urinary frequency. Symptoms present 1 week. Originally felt nauseated and had moderate moderate diarrhea although this is now resolved. She notes urinary frequency and a foul odor to her urine but denies dysuria, urgency or hematuria. Denies vaginal bleeding or vaginal discharge. LMP approximately 4 weeks ago. Reports intermittent headaches and general fatigue. Denies fever, chills, cough, chest pain, shortness of breath or other upper respiratory symptoms. Currently denies abdominal pain. PMH: Denied PSH: Denied Allergies: Amoxicillin and gabapentin Social Hx: Occasional alcohol use Allergies: Coded Allergies: AMOXICILLIN (Verified Allergy, Unknown, 12/28/16) GABAPENTIN (Verified Adverse Reaction, Severe, 01/17/20) forgetfull, COVID-19 Screening Contact w/high risk pt: No Recent Travel to affected area: No Experienced COVID-19 symptoms?: No COVID-19 Testing performed [employer]IST: Yes COVID-19 Screening: Negative COVID-19 COVID-19 Testing Source: job Patient History Last Menstrual Period: 10-1 Now: No Nursing Documentation-PMH Past Medical History: No History, Except For History Of Psychiatric Problem: Yes - anxiety Review of Systems All Other Systems: negative except mentioned in HPI Physical Exam Vital Signs Date Time Temp Pulse Resp B/P (MAP) Pulse Ox O2 Delivery O2 Flow Rate FiO2 01/17/20 09:16 98.2 78 16 108/65 (79) 97 Room Air General: Awake and alert, no acute distress HEENT: NC/AT. EOMI. Resp: Normal work of breathing Abdomen: Soft, nontender, nondistended. No guarding. No masses. Skin: Intact. No abrasions, laceration or rash over the exposed skin MSK: Normal tone and bulk. Moving all extremities. No obvious deformity. Neuro: Awake and alert. Mentating appropriately Medical Decision Making Diagnostic Impression: Primary Impression: UTI (urinary tract infection) Additional Impression: GERD (gastroesophageal reflux disease) ER Course Is a 24-year-old female presenting for evaluation of urinary frequency, malodorous urine, fatigue 1 week duration. Differential includes was not limited to gastritis, gastroenteritis, viral syndrome, UTI, pyelonephritis, , ectopic among others. She is well-appearing there is a stable vital signs and exam is reassuring. Urinalysis consistent with acute urinary tract infection. Will treat with Macrobid. test negative. Also start on Pepcid for GERD-like symptoms. Discussed reasons to return to the emergency department patient and follow-up with PMD. She understands and agrees with the treatment plan. Laboratory Tests Test 01/17/20 09:20 Urine Color Pale yellow Urine Appearance Cloudy Urine pH 5 (4.5-8.0) Urine Specific [place] 1.020 (1.005-1.035) Urine Protein 1+ (NEGATIVE) H Urine Glucose (UA) Negative (NEGATIVE) Urine Ketones Negative (NEGATIVE) Urine Blood 1+ (NEGATIVE) H Urine Nitrite Positive (NEGATIVE) H Urine Bilirubin Negative (NEGATIVE) Urine Urobilinogen Normal MG/DL (0.0-1.0) Urine Leukocyte Esterase 3+ (NEGATIVE) H Urine RBC 0-2 /HPF (0 - 2) Urine WBC 15-20 /HPF (0 - 2) H Urine Squamous Epithelial Cells Few /LPF (NONE/OCC) Urine Bacteria Many /HPF (NONE) H Urine HCG, Qualitative Negative (NEGATIVE) Last Vital Signs Date Time Temp Pulse Resp B/P (MAP) Pulse Ox O2 Delivery O2 Flow Rate FiO2 01/17/20 09:16 98.2 78 16 108/65 (79) 97 Room Air Disposition: HOME, SELF-CARE Condition: Stable Scripts Famotidine* (Pepcid 20mg tablet*) 20 Mg Tablet 20 MG ORAL DAILY for Gerd, #30 TAB 0 Refills Prov: Henok Lopez MD 01/17/20 Nitrofurantoin Monohyd/M-Cryst* (MACROBID 100 MG*) 100 Mg Capsule 100 MG ORAL EVERY 12 HOURS for 7 Days, #14 CAP Prov: Henok Lopez MD 01/17/20 Henok Lopez MD Jan 17, 2020 09:28
[2020-01-17 09:38] VITALS: BP 108/65
[2020-01-17 09:45] LABS: APPEARANCE,URINE CLOUDY; BILIRUBIN, URINE NEGATIVE (NEGATIVE); COLOR,URINE PALE YELLOW; GLUCOSE, URINE (UA) NEGATIVE (NEGATIVE); KETONES,URINE NEGATIVE (NEGATIVE); LEUKOCYTE ESTERASE ,URINE 3+ (NEGATIVE); NITRITE,URINE POSITIVE (NEGATIVE); PH,URINE 5 (4.5-8.0); PROTEIN,URINE 1+ (NEGATIVE); UROBILINOGEN,URINE NORMAL MG/DL (0.0-1.0)
[2020-01-17] MEDS ORDERED: NITROFURANTOIN100 M2 ORAL (10:00)
[2020-01-17] MEDS ORDERED: FAMOTIDINE20 MG ORAL (10:13)
[2020-01-17 10:19] VITALS: BP 115/70
== END 2020-01-17 10:19 | disposition home or self-care (01) ==
LOC: EMR 10:00
DX: N39.0 Urinary tract infection, site not specified (principal); K21.9 Gastro-esophageal reflux disease without esophagitis; F41.9 Anxiety disorder, unspecified; Z88.8 Allergy status to other drugs, medicaments and biological substances; Z88.1 Allergy status to other antibiotic agents
CPT/HCPCS: 81003; 81025; 87086; 87181; 99283